=== PATIENT | female | born 1985 | race Caucasian/White ===

== ENCOUNTER 2019-06-28 12:14 | Outpatient (CLI) | payer BC ==
[~2019-06-28] VITALS: Ht 160 cm; Wt 61.8 kg
[~2019-06-28 12:14] MED LIST: PRENATAL1 TA1 PO
--- NOTE | 2019-06-28 12:30 | NUR ---
Patient to LR4 via wheelchair with spouse, changed into gown, FHR/TOCO monitors placed. Patient states around 1045 she noticed leaking of fluid/increased amount of dishcarge on pad. Denies any regular contractions or vaginal bleeding. Plan of care discussed. SVE-2/60/-3 and amniotest negative with white/mucus discharge on glove. Pad also swabbed with amniotest and negative. called and notified, see physician notification.
[2019-06-28] MEDS ORDERED: FERROUSGLUC256MG (12:44)
[2019-06-28] MEDS ORDERED: ZOVIRAX400 MG PO (12:49)
[2019-06-28 13:12] VITALS: BP 118/71; PULSE 96; TEMP 97.9
--- NOTE | 2019-06-28 13:12 | NUR ---
Patient off monitors to ambulate. 1320: Patients vagina swabbed with amniotest and negative and pad swabbed and negative. 1335: Discharge instructions given and patient verbalizes understanding.
[2019-06-28 13:37] VITALS: BP 106/69; PULSE 88
== END 2019-06-28 13:43 | disposition home or self-care (01) ==
LOC: LDRO 12:14
DX: Z34.93 Encounter for supervision of normal pregnancy, unspecified, third trimester (principal); Z3A.39 39 weeks gestation of pregnancy

== ENCOUNTER 2019-07-02 08:35 | Inpatient (IN) | payer BC ==
[2019-07-02] VITALS (56 sets, daily range): BP systolic 96–140; BP diastolic 51–79; PULSE 82–134; TEMP 97.9–102.1
[~2019-07-02] VITALS: Ht 160 cm; Wt 61.8 kg
[~2019-07-02 08:35] MED LIST changes: +FERROUSGLUC256MG; +ZOVIRAX400 MG PO
[2019-07-02] MEDS ORDERED: NATURAL IRON65 MG (09:27)
--- NOTE | 2019-07-02 09:45 | NUR ---
Patient ambulatory to LDR3 for induction of labor. G3L2 at 39.4 weeks gestation, GBS-. Patient changed into gown, wedged left in bed. EFMs explained and applied. FHR 140 bpm, reactive. Irritable CTX pattern per toco, patient denies feeling any cramping or CTX. VSS. Assessment completed, consents signed. IV started in left forearm with labs drawn from site. LR infusing per protocol. 0945 Pitocin started at 2mu per orders. Plan of care reviewed. Call light within reach.
[2019-07-02 09:59] LABS: BASO % 0.2 % (0.0-2.0); EOS # 0.1 (0.0-0.7); EOS % 0.7 % (0-4.0); GRAN # 7.6 (1.4-6.5); GRAN % 80.1 % (42.2-75.2); HEMATOCRIT 37.3 % (37.0-47.0); HEMOGLOBIN 12.4 g/dl (12.5-16.0); LYMPH # 0.8 (1.2-3.4); LYMPH % 8.8 % (20.0-51.0); MEAN CELL VOLUME 86 fl (80.0-100.0); MEAN CORPUSCULAR HEMOGLOBIN 28 pg (27.0-31.0); MEAN CORPUSCULAR HGB CONC 33 g/dl (33.0-37.0); MEAN PLATELET VOLUME 11.7 fl (7.4-10.4); MONO # 0.9 (0.1-0.6); MONO % 8.9 % (1.7-9.3); PLATELET COUNT 204 K/mm3 (130-400); RED BLOOD COUNT 4.36 M/mm3 (4.10-5.30); REDCELL DISTRIBUTION WIDTH-CV 14.6 % (11.5-14.5)
--- NOTE | 2019-07-02 10:00 | NUR ---
Dr. Dietz at bedside. Plan of care discussed. Bedside sono done, vertex confirmed.
--- NOTE | 2019-07-02 12:45 | NUR ---
Dr. Dietz at bedside. Reviews FHR tracing. SVE with AROM. /-2, clear fluid noted.
--- NOTE | 2019-07-02 13:20 | NUR ---
Patient more uncomfortable with contractions, requesting epidural. IVF bolus started. FORENSIC SCIENTIST notified.
--- NOTE | 2019-07-02 13:46 | NUR ---
1340 SRAVANI Acevedo to room to place epidural. Patient sits upright on the edge of the bed. FHR difficult to monitor in this position and intermittently traces maternal HR as it coorelates with maternal spO2 tracing. 1346 Test dose by SRAVANI Acevedo. See anesthesia record for details. 1350 Patient wedged to right side.
--- NOTE | 2019-07-02 22:00 | NUR ---
1814- Report from ALVARADO Arellano. at bedside. SVE . Patient repositioned LL with peanut ball. Pitocin infusing per protocol at 18mU. - remains on L&D unit. 1899- Temp 98.7. 1914- at bedside. SVE 1 by . Patient repostioned to sitting upright. 1929- See Physician Notification. SVE by this RN. Patient repositioned WL. FHR 150's. SVE 1 by this RN. Patient repositioned WR with peanut ball. 2009- See Physician Notification. 2029- SVE by this RN. Patient appears very flushed and exhausted. Patient has complaints of feeling hot and intermittent N/V. Cold cloth applied. Fan on. Emesis 450ml. 2099- Temp 100.7. IVF bolus. See Physician Notification. 2109- at bedside. SVE by . Temp 102.1. VORB for IV Abx received. civil engineer helper and Circular Saw Operator updated. Nursery RN notified. 2114- Temp 102.1. 2124- Ancef 2gm given. Acetaminophen 1000mg given. See eMAR. 2692-1719- Prolonged deceleration. RN at bedside. Patient repositioned to LL. FHT's audible 60bpm. 2132- at bedside. Vacuum delivery explained to patient. Labor room set up for delivery. Nursery RN notified. civil engineer helper notified. 2137- [place] catheter removed. 50ml out. 2139- Patient begins pushing with contractions. Vacuum-Assisted delivery of head. Shoulder Dystocia <30 sec noted. Shoulder was reduced with Lorri Maneuver. 2140- Spontaneous delivery of viable male . Apgars 7/9/9. Pitocin off. Cord clamped and cut. Cord blood obtained. Cord gases collected and RT notified. Nuchal Cord x1 noted. 2099- Prolonged Third Stage of Labor noted. 2114- Manual delivery of intact placenta with inverted uterus. Placenta removed from uterus without problem. Pitocin infusing at 333 ml/hr per protocol. See Physician's Delivery Note. 2117- Pitocin off per MD. 2122- Pitocin infusing per protocol per MD. Fundus firm per MD. 2124- 2nd degree tear repaired by . Pericare provided. 2144- Gentamicin 5mg/kg given. See eMAR. 2144- PP Recovery started. 2344- Patient has complaints of N/V. Cold cloth applied to forehead. Fan on. IVF infusing. VSS.
[2019-07-03] VITALS (7 sets, daily range): BP systolic 91–101; BP diastolic 52–73; PULSE 88–127; TEMP 98–99
[2019-07-03 09:30] LABS: HEMATOCRIT 30.3 % (37.0-47.0); HEMOGLOBIN 10.1 g/dl (12.5-16.0)
--- NOTE | 2019-07-03 10:20 | NUR ---
Initial visit; Parents thanked Quartz Orientator for offering congratulations and God's blessings for the of their son. Quartz Orientator thanked family for choosing [facility].
[2019-07-04 07:10] VITALS: BP 102/61; PULSE 84; TEMP 98
[2019-07-04] MEDS ORDERED: PERCOCET 325 MG1 TA2 PO (08:10)
[2019-07-04] MEDS ORDERED: MOTRIN 600600 MG/TAB PO (08:10)
[2019-07-04 16:22] VITALS: BP 92/55; PULSE 91; TEMP 98.8
== END 2019-07-04 16:30 | disposition home or self-care (01) | DRG 768 ==
LOC: LDR 08:35 → OB 08:59 → LDR 08:59 → OB 07-03 01:30
PROVIDERS: ADMIT Obstetrics & Gynecology
PROC: 0KQM0ZZ Repair Perineum Muscle, Open Approach (ICD-10-PCS; principal; 2019-07-02)
PROC: 0US97ZZ Reposition Uterus, Via Natural or Artificial Opening (ICD-10-PCS; 2019-07-02)
PROC: 10D07Z6 Extraction of Products of Conception, Vacuum, Via Natural or Artificial Opening (ICD-10-PCS; 2019-07-02)
PROC: 10907ZC Drainage of Amniotic Fluid, Therapeutic from Products of Conception, Via Natural or Artificial Opening (ICD-10-PCS; 2019-07-02)
DX: O99.42 Diseases of the circulatory system complicating childbirth (principal); Z37.0 Single live birth; O41.1230 Chorioamnionitis, third trimester, not applicable or unspecified; O72.1 Other immediate postpartum hemorrhage; R00.0 Tachycardia, unspecified; Z3A.39 39 weeks gestation of pregnancy; O76 Abnormality in fetal heart rate and rhythm complicating labor and delivery; N85.5 Inversion of uterus; O75.89 Other specified complications of labor and delivery; O66.0 Obstructed labor due to shoulder dystocia; O69.81X0 Labor and delivery complicated by cord around neck, without compression, not applicable or unspecified
CPT/HCPCS: J0690; J1580; J2590; J2795; J7120